=== PATIENT | male | born 1995 | race Caucasian/White ===

== ENCOUNTER 2019-01-22 15:07 | Emergency (ER) | payer OTHER ==
[~2019-01-22] VITALS: Ht 167.6 cm; Wt 67.6 kg
[2019-01-22 15:19] VITALS: Ht 167.6 cm; Wt 67.6 kg
[2019-01-22 19:44] VITALS: BP 126/83
== END 2019-01-22 19:44 | disposition home or self-care (01) ==
LOC: ED 15:07
DX: S01.81XA Laceration without foreign body of other part of head, initial encounter (principal); Z88.1 Allergy status to other antibiotic agents; W01.198A Fall on same level from slipping, tripping and stumbling with subsequent striking against other object, initial encounter; Y93.89 Activity, other specified; Y92.89 Other specified places as the place of occurrence of the external cause; Y99.8 Other external cause status

== ENCOUNTER 2020-06-15 21:01 | Emergency (ER) | payer OTHER ==
[~2020-06-15] VITALS: Ht 167.6 cm; Wt 71.2 kg
[2020-06-15 21:16] VITALS: Ht 167.6 cm; Wt 71.2 kg
[2020-06-15 23:03] VITALS: BP 133/97
== END 2020-06-15 23:03 | disposition home or self-care (01) ==
LOC: ED 21:01
DX: S61.211A Laceration without foreign body of left index finger without damage to nail, initial encounter (principal); Z88.1 Allergy status to other antibiotic agents; W45.8XXA Other foreign body or object entering through skin, initial encounter; Y93.89 Activity, other specified; Y92.89 Other specified places as the place of occurrence of the external cause; Y99.8 Other external cause status
CPT/HCPCS: J2001